=== PATIENT | male | born 1970 | race Caucasian/White ===

== ENCOUNTER 2017-10-29 10:25 | Emergency (ER) | payer OTHER ==
[~2017-10-29] VITALS: Ht 172.7 cm; Wt 114.3 kg
[2017-10-29] MEDS ORDERED: LANTUS100 UNITS/ SUB-Q (11:24)
[2017-10-29] MEDS ORDERED: HUMULIN R100 UNIT/1 INJ (11:25)
[2017-10-29] MEDS ORDERED: NORVASC10 MG PO (11:25)
== END 2017-10-29 12:15 | disposition home or self-care (01) ==
LOC: ED 10:25
DX: S91.302A Unspecified open wound, left foot, initial encounter (principal); M79.605 Pain in left leg; E11.9 Type 2 diabetes mellitus without complications; X58.XXXA Exposure to other specified factors, initial encounter; K21.9 Gastro-esophageal reflux disease without esophagitis; I10 Essential (primary) hypertension; Z88.5 Allergy status to narcotic agent; Z88.0 Allergy status to penicillin; Z88.8 Allergy status to other drugs, medicaments and biological substances; Z79.899 Other long term (current) drug therapy; Z79.4 Long term (current) use of insulin
CPT/HCPCS: 93971; 99283

== ENCOUNTER 2018-07-16 15:32 | Emergency (ER) | payer OTHER ==
[~2018-07-16] VITALS: Ht 172.7 cm; Wt 122.5 kg
[~2018-07-16 15:32] MED LIST: HUMULIN R100 UNIT/1 INJ; LANTUS100 UNITS/ SUB-Q; NORVASC10 MG PO
== END 2018-07-16 17:58 | disposition home or self-care (01) ==
LOC: ED 15:32
DX: S50.811A Abrasion of right forearm, initial encounter (principal); M79.631 Pain in right forearm; E11.9 Type 2 diabetes mellitus without complications; Z88.5 Allergy status to narcotic agent; Z88.0 Allergy status to penicillin; Z88.8 Allergy status to other drugs, medicaments and biological substances; Z79.4 Long term (current) use of insulin; Z79.899 Other long term (current) drug therapy; X58.XXXA Exposure to other specified factors, initial encounter
CPT/HCPCS: 73090; 99283-25